=== PATIENT | female | born 1935 ===

== ENCOUNTER 2022-12-20 16:02 | Outpatient (CLI) | payer MEDICARE, OTHER ==
--- NOTE | 2022-12-20 11:55 | XRAY Report ---
PROCEDURE: Foot 3 View LT INDICATIONS: LEFT FOOT PAIN TECHNIQUE: 3 views of the foot were acquired. COMPARISON: X-ray toes 09/01/2022 FINDINGS: Bones: No acute fractures or dislocations. No suspicious bony lesions. Prominent hallux valgus def ormity is present. Minimal mild scattered IP degenerative narrowing is low. Small linear calcificatio n is noted at the base of the fifth metatarsal, unchanged possibly related to prior levels and injury . Soft tissues: No tibiotalar joint effusion. Achilles tendon appears normal. IMPRESSION: Degenerative changes. No visualized acute fracture or dislocation. However, occult injury cannot be e xcluded. Recommend short interval imaging follow-up in 7-10 days as clinically indicated for addition al evaluation. Reviewed by: Rosanna Catherine MD on 12/20/2022 11:54 AM PST Approved by: Rosanna Catherine MD on 12/20/2022 11:54 AM PST Station ID: [id number]
== END 2022-12-20 16:13 | disposition home or self-care (01) ==
LOC: DI.WOS 16:02
PROVIDERS: ATTEND Orthopaedic Surgery
DX: M19.072 Primary osteoarthritis, left ankle and foot (principal)